=== PATIENT | male | born 1955 | race Caucasian/White ===

== ENCOUNTER → 2016-04-06 | Outpatient (CLI) | payer MEDICAID | END | disposition home or self-care (01) | LOC: LABPAT 17:10 | PROVIDERS: ATTEND Orthopaedic Surgery | DX: Z01.812 Encounter for preprocedural laboratory examination (principal) | CPT/HCPCS: 87070 ==

== ENCOUNTER → 2016-04-12 | Outpatient (CLI) | payer MEDICAID ==
[2016-04-12 12:15] LABS: EKG EKG PERFORMED
[2016-04-12 13:06] LABS: Partial Thromboplastin Time 22.9 sec (22.0-30.0); Prothrombin Time 10.3 sec (9.0-12.0)
[2016-04-12 13:29] LABS: Appearance,Urine Clear (Clear); Bilirubin,Urine Negative (Negative); Glucose,Urine (UA) Negative (Negative); Ketones,Urine Negative (Negative); Leukocyte Esterase,Urine Negative (Negative); Nitrite,Urine Negative (Negative); Protein,Urine Negative (Negative); Specific Gravity,Urine 1.022 (1.001-1.035); UA Billing (MACRO vs. MICRO) CHEM; Urobilinogen,Urine <2.0 mg/dL (<2.0)
[2016-04-12 13:30] LABS: CH 30.4; CHCM 34.3; HCT 44.4 % (39.0-53.0); HDW 2.73; HGB 14.5 gm/dL (13.0-17.5); MCH 29.2 pg (25.0-35.0); MCHC 32.8 g/dL (31.0-37.0); MCV 89.1 fL (80.0-100.0); Mean Platelet Volume 8.1; RBC 4.98 m/uL (4.30-5.90); RDW 13.1 % (11.5-15.5); WBC 5.9 k/uL (3.8-10.6)
[2016-04-12 14:24] LABS: Manual Review Performed; Nucleated Red Blood Cells 0 /100 WBC (0-0); Total Cells Counted 100
[2016-04-12 14:25] LABS: RBC Morphology Normal
[2016-04-12 15:24] LABS: ALT 36 U/L (21-72); AST 22 U/L (17-59); Alkaline Phosphatase 91 U/L (38-126); Anion Gap 14 mmol/L; Blood Urea Nitrogen 21 mg/dL (9-20); Calcium 9.2 mg/dL (8.4-10.2); Carbon Dioxide 25 mmol/L (22-30); Chloride 102 mmol/L (98-107); Glucose 108 mg/dL (74-99); Non-African American GFR(MDRD) >60 (>60 ml/min/1.73 sqM); Potassium 4.3 mmol/L (3.5-5.1); Sodium 141 mmol/L (137-145); Total Bilirubin 0.5 mg/dL (0.2-1.3); Total Protein 7.1 g/dL (6.3-8.2)
== END | disposition home or self-care (01) ==
LOC: LABPAT 12:01
PROVIDERS: ATTEND Orthopaedic Surgery
DX: Z01.810 Encounter for preprocedural cardiovascular examination (principal); R94.31 Abnormal electrocardiogram [ECG] [EKG]
CPT/HCPCS: 80053; 81003; 85027; 85610; 85730; 93005

== ENCOUNTER 2016-04-21 10:14 | Inpatient (IN) | payer MEDICAID ==
[2016-04-19 12:48] VITALS: BMI 31.5
[~2016-04-21 10:14] MED LIST: ACETAMINOPHEN TAB 500 MG TAB PO ONE; DEXAMETHASONE SOD PHOSPHATE 10 MG/ML 1 ML VIAL IV ONE; HYDROmorphone 1 MG/ML 1 ML SYRINGE IVP PRN; LACTATED RINGERS 1,000 ML IV SCH; MELOXICAM 7.5 MG TAB PO ONE; MIDAZOLAM 2 MG/2 ML VIAL IV PRN; ONDANSETRON 4 MG/2 ML VIAL IVP ONE; SCOPOLAMINE 1.5MG/72HR PATCH TRANSDERM ONE; TRANEXAMIC ACID 1,000 MG in SODIUM CHLORIDE 0.9% 100 ML IVPB ONE; ceFAZolin 2 GM in SODIUM CHLORIDE 0.9% 100 ML IVPB ONE
[2016-04-21] MEDS ORDERED: LIDOCAINE 1% 20 ML VIAL (10MG/ML) FOR IV START INTRADERMA ONE (11:15)
[2016-04-21] MEDS ORDERED: MIDAZOLAM 2 MG/2 ML VIAL ONE (12:12)
[2016-04-21] MEDS ORDERED: SODIUM CHLORIDE 0.9% IRRIG 1,000 ML BTL IRRIGATION ONE (12:12)
[2016-04-21] MEDS ORDERED: PHENYLEPHRINE-0.9% NACL SYG 1 MG/10 ML SYRINGE ONE (12:12)
[2016-04-21] MEDS ORDERED: fentaNYL (PF) 50 MCG/ML 2 ML AMP ONE (12:12)
[2016-04-21] MEDS ORDERED: ePHEDrine 50 MG/ML 1 ML AMP ONE (12:12)
[2016-04-21] MEDS ORDERED: PROPOFOL 10 MG/ML 20 ML VIAL IV ONE (12:12)
[2016-04-21] MEDS ORDERED: SODIUM CHLORIDE 0.9% 100 ML BAG ONE (12:12)
[2016-04-21] MEDS ORDERED: HEPARIN SODIUM,PORCINE 10,000 UNIT/ML 1 ML VIAL ONE (12:12)
[2016-04-21] MEDS ORDERED: TRANEXAMIC ACID 1,000 MG/10 ML VIAL ONE (12:12)
[2016-04-21] MEDS ORDERED: ceFAZolin 3,000 MG in SODIUM CHLORIDE 0.9% IRRIGATIO 3,000 ML IRRIGATION ONE (12:25)
[2016-04-21] MEDS: ROPIVACAINE 246.25 MG, EPINEPHrine 0.5 MG, KETOROLAC 30 MG, cloNIDine HCL/PF 80 MCG, WA... MISCELLANE ONE ×10 (12:43→13:33)
--- NOTE | 2016-04-21 13:52 | FL ---
EXAMINATION TYPE: FL guidance operating room, XR Hip Complete RT DATE OF EXAM: 04/21/2016 1:45 PM CLINICAL HISTORY: Right hip replacement surgery. TECHNIQUE: Fluoroscopy. COMPARISON: None. FINDINGS: Fluoroscopic guidance was provided during anterior approach hip replacement procedure perf ormed by Dr. Rider. A total of 35 seconds of fluoroscopic time was utilized during the procedure and 2 spot intraoperative images are acquired. Images acquired show metallic hardware from right hip arthroplasty felt satisfactory in position on i ntraoperative images saved in one frontal projection. IMPRESSION: As Above.
--- NOTE | 2016-04-21 13:58 | P.OP ---
Date of Procedure: 04/21/16 Preoperative Diagnosis: Severe osteoarthritis of the right hip Postoperative Diagnosis: Severe osteoarthritis of the right hip Procedure(s) Performed: Right total hip arthroplasty with a direct anterior approach Implants: Del Real and nephew Polarstem size 2 standard Del Real & Nephew R3, 3 hole acetabular shell, 54 mm De Lreal & Nephew reflection 6.5 mm cancellus screw, 20 mm 2 Del Real [employer] Nephew R3, XLPE 20 acetabular liner Del Real & Nephew Oxinium femoral head 36 m, +0 All components were press-fit. The articulation is ceramic on polyethylene. Anesthesia: spinal Surgeon: Gary Rider Fur Trimming Machine Operator #1: Sahara Arguello Estimated Blood Loss (ml): 250 (100 mL returned with Cell Saver) Pathology: other (Femoral head) Condition: stable Disposition: PACU Indications for Procedure: After failure of conservative treatment we discussed the surgical and nonsurgical treatment options at length. Patient wishes to proceed with a total hip arthroplasty with a direct anterior approach. Complications specific to this procedure were discussed at length, including but not limited to infection, leg length discrepancy, dislocation, and nerve injury. Patient is aware of all these complications and informed consent was obtained Operative Findings: The operative findings are consistent with severe osteoarthritis of the right hip Description of Procedure: Patient was seen and evaluated in the preoperative area, consent was reviewed, and the surgical site was marked with a skin marker. Patient was then brought to the operating room and given prophylactic antibiotics intravenously. 1 g of Tranexamic acid was also given. A spinal anesthetic was administered by the anesthesia department. The patient was then placed on the hana table with the bony prominences well-padded. The hip area was then prepped and draped in usual sterile fashion. A universal timeout was then performed, which confirmed the patient's name, surgical site, ALLERGIES, and procedure being performed. Next the incision site was located at 1 cm distal and 1 cm lateral to the anterior superior iliac spine. The skin and subcutaneous tissues were sharply incised. Incision was carefully dissected down to the fascia overlying the tensor fascia lucrecia muscle. This fascia was then incised in line with the incision. Next, using blunt finger dissection, the tensor fascia lucrecia muscle was dissected off its investing fascia. The muscle was then carefully retracted laterally with a cobra retractor over the lateral neck of the femur. Next, the circumflex vessels were identified and cauterized using the AquaMantis device. The anterior hip capsule was then exposed. The capsule was then opened and an inverted T fashion. Retention sutures were placed in the inferior arms of the capsule. Cobra retractors were then placed intracapsularly. The proximal femur was then visualized. The femoral neck was then osteotomized appropriate level above the lesser trochanter. Small amount of traction was placed with the hand table. A small wedge of bone was then removed from the remaining femoral head. Next, using a corkscrew femoral head was easily removed from the acetabulum. On gross visual inspection, the femoral head had complete loss of articular cartilage in multiple periarticular osteophytes. Attention was then turned to the acetabulum. the acetabulum was exposed and any remaining labrum was excised. Sequential reaming of the acetabulum was performed using fluoroscopic guidance. When the appropriate size was reached, a trial was then placed. The position and fit of the trial was checked with fluoroscopy. The trial was then removed. Then, using fluoroscopic guidance, the final implant was impacted at 20 of anteversion and 40 of abduction, and fully seated in the acetabulum. 2 screws were then placed in the acetabulum. Again fluoroscopy was used to check position of the screws. Next, the liner was then impacted, with a 20 elevated liner located in the anterior superior quadrant. Component locking was confirmed. Attention was then directed to the femur. With the aid of the Rosy table, the femur was externally rotated to approximately 130, extended, and abducted under the opposite leg. A side hook was then placed under the proximal femur, and the side hook elevator was used to elevate the proximal femur. Retractors were then placed. A capsular release was performed, as well as a release of the conjoined tendon, which afforded excellent visualization of the proximal femur. Next, a box osteotome was used to lateralize the proximal femur. A general merchandise manager was then used to locate the femoral canal. Sequential broaching was then performed with appropriate size which afforded excellent fixation in the proximal femur. The calcar was then planed. A trial was then placed with appropriate head and neck, and the hip was gently reduced with the aid of the Rosy table. Fluoroscopy was then used to check position of the components, as well as to ensure equal leg lengths. The hip was then gently dislocated and the trials were then removed. Final implants were then impacted and the hip was again reduced. Final fluoroscopic x-rays confirmed that the components were in anatomic position, as well as equal leg lengths. The hip was also taken through range of motion, and found to be stable. The hip was then copiously irrigated with antibiotic solution with pulsatile lavage. The hip was then irrigated with Irrisept solution. The soft tissues were then injected with ropivacaine solution. A second dose of 1 g of Tranexamic acid was given. the fascia was then closed with 2-0 strata fix suture. The subcutaneous tissue was closed with 3-0 Vicryl. The subcuticular tissue was closed with 30 strata fix suture. The skin was then closed with Dermabond tape. The patient was then transferred to the recovery room in stable condition. The Asst. Sahara Arguello was required due to the complexity of surgery, and the need for skilled quality assistant for positioning, draping, exposure, retraction, and closure of the wound.and closure of the wound.
[2016-04-21] MEDS ORDERED: LACTATED RINGERS 1,000 ML IV ONE (13:59)
[2016-04-21] MEDS ORDERED: HYDROmorphone 1 MG/ML 1 ML SYRINGE IVP PRN ×3 (14:05)
[2016-04-21] MEDS ORDERED: DIAZEPAM 5 MG TAB PO PRN ×2 (14:05)
[2016-04-21] MEDS ORDERED: ONDANSETRON 4 MG/2 ML VIAL IVP PRN (14:05)
[2016-04-21] MEDS ORDERED: NALOXONE 0.4 MG/ML 1 ML VIAL IV PRN (14:05)
[2016-04-21] MEDS ORDERED: HYDROcodone/APAP 5-325MG 1 EACH TAB PO PRN (14:05)
[2016-04-21] MEDS ORDERED: MAGNESIUM HYDROXIDE 2,400 MG/10 ML CUP PO PRN (14:05)
--- NOTE | 2016-04-21 14:35 | XR ---
EXAMINATION TYPE: XR Hip Limited RT DATE OF EXAM: 04/21/2016 2:26 PM COMPARISON: NONE HISTORY: Postop There is a prosthetic hip in near anatomic alignment. There is soft tissue edema and emphysema. IMPRESSION: 1. Postoperative change. Appears in near-anatomic alignment.
[2016-04-21] MEDS: hydrOXYzine PAMOATE 25 MG CAP PO PRN (17:46)
[2016-04-21] MEDS: HYDROcodone/APAP 5-325MG 1 EACH TAB PO PRN (17:46)
[2016-04-21] MEDS: SODIUM CHLORIDE 0.9% 1,000 ML IV SCH ×2 (19:28→23:48)
[2016-04-21 20:15] VITALS: RESP 16
[2016-04-21] MEDS ORDERED: SENNOSIDES-DOCUSATE SODIUM 1 EACH TAB PO SCH (21:00)
[2016-04-21] MEDS: ASPIRIN 325 MG TAB PO SCH (21:18)
[2016-04-21] MEDS: ceFAZolin 2 GM in SODIUM CHLORIDE 0.9% 100 ML IVPB SCH (23:28)
[2016-04-22] MEDS: HYDROcodone/APAP 5-325MG 1 EACH TAB PO PRN ×3 (00:03→12:43)
[2016-04-22] MEDS: hydrOXYzine PAMOATE 25 MG CAP PO PRN ×2 (00:04→06:59)
[2016-04-22 06:55] LABS: Basophils % (A) 0 %; CH 30.3; CHCM 34.2; Eosinophils % (A) 0 %; HCT 37.7 % (39.0-53.0); HDW 2.76; HGB 12.6 gm/dL (13.0-17.5); Luc # (Auto) 0.08; Luc % (Auto) 1; Lymphocytes # (A) 1.2 k/uL (1.0-4.8); Lymphocytes % (A) 14 %; MCH 29.8 pg (25.0-35.0); MCHC 33.5 g/dL (31.0-37.0); Mean Platelet Volume 8.2; Monocytes # (A) 0.6 k/uL (0-1.0); Monocytes % (A) 7 %; Neutrophils # (A) 6.1 k/uL (1.3-7.7); Neutrophils % (A) 77 %; RBC 4.23 m/uL (4.30-5.90); RDW 12.7 % (11.5-15.5); WBC (Perox) 8.53
[2016-04-22] MEDS: ceFAZolin 2 GM in SODIUM CHLORIDE 0.9% 100 ML IVPB SCH (07:00)
[2016-04-22] MEDS: ASPIRIN 325 MG TAB PO SCH (08:28)
[2016-04-22] MEDS ORDERED: MELOXICAM 7.5 MG TAB PO SCH (09:00)
[2016-04-22] MEDS: SODIUM CHLORIDE 0.9% 1,000 ML IV SCH (10:16)
--- NOTE | 2016-04-22 10:38 | P.DS ---
Providers Date of admission: 04/21/16 10:14 Expected date of discharge: 04/22/16 Attending physician: Gary Rider Consults: 04/21/16 14:05 Consult Physician Routine Consulting Provider: Carmine Ruth Consult Reason/Comments: medical management Do you want consulting provider notified?: Yes Primary care physician: Stated None - Discharge Diagnosis(es) (1) Status post total hip replacement, right Current Visit: Yes Status: Acute (2) Primary osteoarthritis of right hip Current Visit: Yes Status: Acute Hospital Course: This is a 60-year-old male with known history of degenerative arthritis of the right hip. The patient presents for evaluation. After discussion and consideration patient elects to proceed with total hip arthroplasty. The patient is seen preoperatively by his primary care physician and cleared for surgery. Patient is admitted to [facility] on 04/21/2016 for total hip arthroplasty. The procedures performed without complication or sequelae. The patient is doing well postoperatively. Labs and vital signs are stable on day of discharge. On day of discharge patient's hip incision is healing well. There is minimal erythema. There is no drainage noted at this time. There is minimal soft tissue swelling to the hip and thigh. Patient has full foot and ankle motion without difficulty or pain. Neurovascular status to the right lower extremity is intact. Patient is discharged to home in good condition. Plan - Discharge Summary New Discharge Prescriptions: Aspirin EC [Ecotrin] 325 mg PO BID #60 tablet. HYDROcodone/APAP 5-325MG [Halbur 5-325] 1 - 2 each PO Q4-6H PRN #90 tab PRN Reason: Pain Sennosides-Docusate Sodium [Senokot-S] 2 tab PO DAILY #60 tablet Discharge Medication List Hydrochlorothiazide [Hydrodiuril] 12.5 mg PO DAILY 04/19/16 [History] Meloxicam [Mobic] 7.5 mg PO DAILY 04/19/16 [History] NIFEdipine [Procardia XL] 30 mg PO DAILY 04/19/16 [History] Valsartan [Diovan] 80 mg PO DAILY 04/19/16 [History] Aspirin EC [Ecotrin] 325 mg PO BID #60 tablet. 04/21/16 [Rx] Sennosides-Docusate Sodium [Senokot-S] 2 tab PO DAILY #60 tablet 04/21/16 [Rx] HYDROcodone/APAP 5-325MG [Halbur 5-325] 1 - 2 each PO Q4-6H PRN #90 tab 04/22/16 [Rx] Follow up Appointment(s)/Referral(s): Gary Rider DO [Doctor of Osteopathic Medicine] - 2 Weeks Activity/Diet/Wound Care/Special Instructions: Weightbearing as tolerated with walker Daily dressing changes Okay to shower after 72 hours with no drainage Keep incision clean and dry Call [facility] with questions or concerns [phone] Discharge Disposition: HOME WITH HOME HEALTH SERVICES
[2016-04-22 14:21] VITALS: BP 97/63; PULSE 92; TEMP 99.5
--- NOTE | 2016-04-22 16:12 | CONS ---
DATE OF CONSULTATION: REASON FOR CONSULTATION: Advice regarding hypotension and multiple other medical issues requested by orthopedic surgery. HISTORY OF PRESENT ILLNESS: This 60-year-old gentleman with a past medical history of hypertension, history of degenerative joint disease, family history of malignant hyperthermia underwent right hip arthroplasty by orthopedic surgery. There is no chest pain or palpitation. No fever. No cough. Blood pressure found to be slightly low to 105/75, 97/63. There is no history of fever, rigors or chills. No history of headache or seizures at this time. PAST MEDICAL HISTORY: 1. History of hypertension. 2. History of degenerative joint disease. 3. History of left shoulder replacement. Medications prior to admission include: 1. Diovan 80 mg p.o. daily. 2. Procardia XL 30 mg p.o. daily. 3. Mobic 7.5 mg p.o. daily. 4. HydroDIURIL 12.5 mg p.o. daily. 5. Senokot-S 2 tabs daily. 6. Clarita family one to two tablets q4-6h p.r.n. 7. Ecotrin 320 mg b.i.d. ALLERGIES: None. FAMILY HISTORY: History of malignant hyperthermia. SOCIAL HISTORY: No history of smoking. No history of alcohol intake. REVIEW OF SYSTEMS: ENT: No diminished hearing. No diminished vision. CARDIOVASCULAR: No angina or palpitations. RESPIRATORY: No cough. GI: No nausea. : No dysuria. CARDIOVASCULAR: No numbness or weakness. ALLERGIES: No asthma or hayfever. MUSCULOSKELETAL: As mentioned earlier. HEMATOLOGY/ONCOLOGY: noted ENDOCRINE: No history of diabetes. CONSTITUTIONAL: As mentioned earlier. DERMATOLOGY: Negative. RHEUMATOLOGY: Negative. PSYCHIATRY: As mentioned earlier. PHYSICAL EXAMINATION: The patient is alert and oriented x3. Pulse is 77, blood pressure 105/75. Respiratory rate 16. Temperature 98.1, pulse ox 92% on room air. HEENT: Conjunctivae normal. NECK: No jugular venous distention. CARDIOVASCULAR: S1, S2 muffled. RESPIRATORY: Breath sounds diminished at the bases. No rhonchi. No crackles. ABDOMEN: Soft. Nontender. Status post knee arthroplasty. CENTRAL NERVOUS SYSTEM: Higher functions as mentioned earlier. Moves all four limbs. No focal deficits. LYMPHATICS: No lymph nodes palpable in the neck, axillae or groin. SKIN: No ulcer, rash or bleeding. LABS: Hemoglobin 12.5. ASSESSMENT: 1. Status post right hip arthroplasty. 2. Anemia, possibly dilutional. 3. Mild relative hypotension. 4. History of hypertension. 5. History of degenerative joint disease. Recommendations and Discussion: In this 60-year-old gentleman who presented with multiple medical issues at this time, I recommend to continue to hold the Procardia XL and for a couple of days and then restart in the outpatient. Monitor blood pressure closely. Otherwise, closely follow with primary physician in the outpatient setting. The rest of the medications per the recommendations of orthopedic surgery. MTDD
== END 2016-04-22 17:10 | disposition home health service (06) | DRG 470 ==
LOC: 2ORMAIN 10:14 → 3SUR 14:13
PROVIDERS: ADMIT Orthopaedic Surgery; ATTEND Orthopaedic Surgery
PROC: 0SR904A Replacement of Right Hip Joint with Ceramic on Polyethylene Synthetic Substitute, Uncemented, Open Approach (ICD-10-PCS; principal; 2016-04-21 12:30)
DX: M16.11 Unilateral primary osteoarthritis, right hip (principal); I95.9 Hypotension, unspecified; I10 Essential (primary) hypertension; D64.9 Anemia, unspecified; Z79.899 Other long term (current) drug therapy; Z79.82 Long term (current) use of aspirin
CPT/HCPCS: 73501; 73502; 85025; 86850; 86891; 86900; 86901; 88300

== ENCOUNTER → 2017-07-27 | Outpatient (CLI) | payer MEDICAID ==
[2017-07-27 15:39] LABS: Potassium 4.9 mmol/L (3.5-5.1)
== END | disposition home or self-care (01) ==
LOC: LABPAT 15:04
PROVIDERS: ATTEND Orthopaedic Surgery Sports Medicine
DX: Z01.812 Encounter for preprocedural laboratory examination (principal); Z01.818 Encounter for other preprocedural examination; I10 Essential (primary) hypertension; Z98.890 Other specified postprocedural states
CPT/HCPCS: 36415; 80051; 93005

== ENCOUNTER 2017-08-09 11:03 | Day surgery (SDC) | payer MEDICAID ==
[2017-08-06 10:13] VITALS: BMI 31.5
[~2017-08-09 11:03] MED LIST changes: -ACETAMINOPHEN TAB 500 MG TAB PO ONE; +HYDROmorphone 0.5 MG/0.5 ML SYRINGE IVP PRN; -HYDROmorphone 1 MG/ML 1 ML SYRINGE IVP PRN; -MELOXICAM 7.5 MG TAB PO ONE; +MORPHINE SULFATE 4 MG/ML SYRINGE IV PRN; +Pre Op ABX Message 1 EACH MISC MISCELLANE ONE; -SCOPOLAMINE 1.5MG/72HR PATCH TRANSDERM ONE; -TRANEXAMIC ACID 1,000 MG in SODIUM CHLORIDE 0.9% 100 ML IVPB ONE; -ceFAZolin 2 GM in SODIUM CHLORIDE 0.9% 100 ML IVPB ONE
[2017-08-09 11:23] VITALS: RESP 16
[2017-08-09] MEDS ORDERED: ceFAZolin IN SWFI 2 GM/20 ML SYRINGE IVP STA (11:23)
[2017-08-09] MEDS ORDERED: LIDOCAINE 1% 20 ML VIAL (10MG/ML) FOR IV START INTRADERMA ONE (11:53)
[2017-08-09] MEDS ORDERED: ROPIVACAINE 5 MG/ML 30 ML VIAL ONE (11:54)
[2017-08-09] MEDS ORDERED: ROCURONIUM BROMIDE 10 MG/ML 10 ML VIAL IV ONE (11:54)
[2017-08-09] MEDS ORDERED: GLYCOPYRROLATE 0.2 MG/ML 2 ML VIAL ONE (11:54)
[2017-08-09] MEDS ORDERED: fentaNYL (PF) 50 MCG/ML 2 ML AMP ONE (11:54)
[2017-08-09] MEDS ORDERED: PROPOFOL 10 MG/ML 20 ML VIAL IV ONE (11:54)
[2017-08-09] MEDS ORDERED: MORPHINE SULFATE IR 15 MG TABLET ONE (11:54)
[2017-08-09] MEDS ORDERED: PHENYLEPHRINE-0.9% NACL SYG 1 MG/10 ML SYRINGE ONE (11:54)
[2017-08-09] MEDS ORDERED: LIDOCAINE 1% INJ 10MG/ML (20 ML MDV) ONE (11:54)
[2017-08-09] MEDS ORDERED: LIDOCAINE 2% INJ 20 MG/ML (20 ML MDV) ONE (11:54)
[2017-08-09] MEDS ORDERED: MIDAZOLAM 2 MG/2 ML VIAL ONE (11:54)
[2017-08-09] MEDS ORDERED: NEOSTIGMINE 1 MG/ML 10 ML VIAL ONE (11:54)
[2017-08-09] MEDS ORDERED: SODIUM CHLORIDE 0.9% 100 ML with ceFAZolin 2,000 MG IV ONE ×2 (12:15)
[2017-08-09] MEDS ORDERED: LACTATED RINGERS 1,000 ML IV ONE (12:57)
[2017-08-09 13:26] VITALS: TEMP 97
[2017-08-09 14:21] VITALS: BP 125/82; PULSE 59
--- NOTE | 2017-08-09 18:00 | P.ONQ ---
Anesthesiology Proc Note - PNB - Peripheral Nerve Block Performed Right Interscalene Single Time Out Performed: Yes Procedure Start Time: 11:32 Procedure Stop Time: 11:36 Indication: Acute Post-Operative Pain, Requested by physician Sedation Type: Sedate with meaningful contact maintained Preparation: Sterile Prep Needle Size: 100mm (4") Needle Gauge: 21 Technique: Ultrasound Injectate: 0.5% Ropivacaine (see comment for volume) (ropi .5% 30cc) Blood Aspirated: No Pain Paresthesia on Injection Noted: No Resistance on Injection: Normal Events: Uneventful and Well Tolerated
--- NOTE | 2017-08-09 20:41 | OP ---
OPERATIVE REPORT DATE OF PROCEDURE: 08/09/2017 PREOPERATIVE DIAGNOSES: 1. Right shoulder superior labral tear. 2. Right shoulder bicipital tenosynovitis. 3. Right shoulder chondromalacia, glenohumeral joint. 4. Right shoulder subacromial impingement. POSTOPERATIVE DIAGNOSES: 1. Right shoulder type 2 superior labral tear, tearing both anterior and posterior to the biceps anchor. 2. Right shoulder partial tearing intra-articular long head of the biceps tendon. 3. Right shoulder chondromalacia, glenohumeral joint. 4. Right shoulder type 2 anterolateral acromial spur. 5. Right shoulder dense subacromial bursitis and adhesions. PROCEDURES PERFORMED: 1. Right shoulder arthroscopic biceps tenotomy. 2. Right shoulder arthroscopic anterior, superior and posterior labral debridement. 3. Right shoulder arthroscopic chondroplasty of the glenoid and the humeral head. 4. Right shoulder arthroscopic acromioplasty. 5. Right shoulder arthroscopic subacromial lysis of adhesions. SURGEON: Varun Barone MD. [employer] OPERATOR: Paul GANN. ANESTHESIA: General endotracheal. ESTIMATED BLOOD LOSS: Minimal. TOURNIQUET: None. DRAINS: None. COMPLICATIONS: None apparent. DISPOSITION: Postanesthesia Care Unit. EXAMINATION UNDER ANESTHESIA OF RIGHT SHOULDER: Elevation 160 degrees, external rotation at the side 45 degrees, external rotation at 90 degrees. Adduction was 90 degrees. Internal rotation at 90 degrees. Abduction was 60 degrees, sulcus less than 1 cm, anterior translation glenoid face, posterior translation of glenoid face. ARTHROSCOPIC FINDINGS, RIGHT SHOULDER: 1. Superior labrum. Type 2 superior labral tear, tearing both anterior and posterior at the biceps anchor. The biceps anchor was not intact. There was also partial tearing of the intra-articular portion of the long head of the biceps tendon. 2. Anterior inferior labrum normal. Normal glenoid labral attachment. 3. Posterior labrum. Tearing of the posterior labrum from the 9 o'clock position to the 12 o'clock position on the glenoid face. 4. Humeral head cartilage. There was diffuse grade 1-2 change with small punctate areas of grade 4 change at the posterior inferior aspect of the humeral head. There were some loose cartilage flaps noted as well. 5. Rotator cuff. No evidence of rotator cuff tearing on both the bursal or articular surface. 6. Glenoid face cartilage with diffuse grade 2-3 change with loose cartilage flaps. 7. Subacromial space. Significant fraying of the undersurface of the coracoacromial ligament with a type 2 anterolateral acromial spur. Dense subacromial bursitis and adhesions as well. INDICATIONS: Noé is a 62-year-old male with right shoulder pain. He has had a prolonged course of right shoulder pain. He has noted significant catching, weakness and pain in the shoulder. He has been through a fairly significant course of non-operative treatment at this point. Physical examination and MRI revealed tearing superior labrum as well as inflammatory changes of the proximal long head of the biceps tendon. There was also noted to be early chondromalacia of the glenohumeral joint. At this point the patient feels that he has failed non-operative treatment and would like to proceed with operative intervention. Long discussion was held with the patient with regard to treatment options. The risks of the procedure were all discussed with him in detail. These risks included but were not limited to risk of infection, nerve damage, bleeding, pain, and a small risk of deep vein thrombosis which could lead to fatal pulmonary embolism. Further risks include a possibility for biceps contour change with a biceps tenotomy. The patient understands the operation as well as the fact that there is no guarantee of improvement of his symptoms. Appropriate informed consent was obtained. DESCRIPTION OF THE PROCEDURE: Patient was identified in the preoperative holding area. Surgical site was marked by both the patient and myself. He was given 2 grams of Ancef IV for prophylactic purposes. He was then transferred to the operative suite, where he was placed supine on the operating room table. The patient was then intubated endotracheally and received general anesthesia throughout the operative procedure. Examination under anesthesia was then performed and the findings were noted as above. The patient was then placed into the beach chair position and well padded in preparation for surgery. Great care was taken to ensure the cervical spine was in neutral alignment and well padded and maintained that way throughout the operative procedure. Great care was also taken to ensure that his legs were appropriately padded as well. The patient's right upper extremity was then prepped and draped in the usual sterile fashion. A standard surgical pause was undertaken to ensure that appropriate preoperative antibiotics had been given and that we were operating on the correct site. All staff in the room were in agreement and we proceeded. The acromion as well as the AC joint and coracoid were marked with a surgical pen. The skin of the anticipated port sites were also marked with a surgical pen. The skin of the anticipated port sites were then injected with 0.25% Marcaine with epinephrine. I then proceed to make a posterior portal. A 30-degree arthroscope was introduced in the glenohumeral joint through this portal. The arthroscopic pump pressure was set at 40 mmHg and maintained at that level throughout the entire case. Next, utilizing an 18-gauge spinal needle, I topically localized the placement, and the anterior superior portal was made. This was made just underneath the biceps tendon high in the rotator interval. A small 5.75 mm cannula was then placed, and the outflow was then done through this cannula. Diagnostic arthroscopy of the shoulder was then performed. The findings were noted as above. Great care was taken to probe the superior labral complex as well as the biceps anchor. The biceps anchor was not firmly attached. He had significant tearing of the superior labrum. This extended both anterior and posterior to the biceps anchor. The intra- articular portion of the long head of the biceps tendon did have mild partial tearing as well. At this point I proceeded with a biceps tenotomy. The biceps was tenotomized near its attachment on the supraglenoid tubercle. This was done utilizing the ArthroCare wand. I then proceeded to debride the torn loose tissue of the superior labrum. This was debrided anteriorly, superiorly and posteriorly back to stable tissue. I then inspected the rotator cuff from intra-articular. There was no evidence of tearing from the articular surface of the subscapularis, supraspinatus or infraspinatus. I then inspected the joint itself. He had small punctate areas of grade 4 areas on the posterior inferior aspect of the humeral head. There were loose cartilage flaps noted there. These were gently debrided with light chondroplasty in this area utilizing the synovial shaver. He also had diffuse grade 2 and some areas of grade 3 change on the glenoid. There were loose chondral flaps noted there as well. These loose chondral flaps were also gently debrided via chondroplasty with a synovial shaver. At this point in time no further work was deemed necessary from intra-articular. The arthroscope was removed from the glenohumeral joint, and utilizing the same posterior skin incision, was placed in the subacromial space. Next, utilizing the 18-gauge spinal needle, I topically localized the placement. A lateral portal was made under direct visualization. Dense subacromial bursitis and adhesions. A subacromial bursectomy and lysis of adhesions were then performed utilizing synovial shaver as well as an ArthroCare wand. There was significant fraying of the undersurface of the coracoacromial ligament. This was then taken down utilizing the ArthroCare wand. This exposed an underlying type 2 anterolateral acromial spur. I then proceeded with an acromioplasty. Utilizing the synovial shaver in a cinthia-type fashion the acromioplasty was completed. When the acromioplasty was complete, the arthroscope was placed into the lateral portal and the shaver placed posteriorly to ensure that it was adequate and coplanar with the posterior aspect of the acromion. I then thoroughly examined the rotator cuff from the bursal surface as well. The arthroscope was placed in the lateral portal to do this. The shoulder was taken through range of motion. I was able to visualize the entire bursal surface of the rotator cuff and it was pristine without any evidence of tearing. At this point in time no further work was deemed necessary. The shoulder was thoroughly irrigated and drained with an outflow cannula. The arthroscopic equipment was removed from the shoulder. The arthroscopic portals were then closed with 3-0 nylon interrupted suture. Sterile compressive dressings were applied. The patient's right upper extremity was placed into a standard sling. All sponge and needle counts were deemed correct prior to closure. The patient tolerated the procedure without apparent complications. He was transferred to the recovery room in stable condition. MMODL / IJN: [id number] /
== END 2017-08-09 14:55 | disposition home or self-care (01) ==
LOC: OR 11:03
PROVIDERS: ATTEND Orthopaedic Surgery Sports Medicine
DX: S43.431A Superior glenoid labrum lesion of right shoulder, initial encounter (principal); M75.21 Bicipital tendinitis, right shoulder; S46.111A Strain of muscle, fascia and tendon of long head of biceps, right arm, initial encounter; M75.01 Adhesive capsulitis of right shoulder; X50.0XXA Overexertion from strenuous movement or load, initial encounter; M94.211 Chondromalacia, right shoulder; M25.811 Other specified joint disorders, right shoulder; Z79.899 Other long term (current) drug therapy; I10 Essential (primary) hypertension; Z91.09 Other allergy status, other than to drugs and biological substances; E78.5 Hyperlipidemia, unspecified
CPT/HCPCS: 64415; 29823; J2001 ×2; J2250; J1100; J2710; J2405; J3010; J0690; J2795; J2370; J2704

== ENCOUNTER → 2018-01-07 | Outpatient (CLI) | payer MEDICAID ==
--- NOTE | 2018-01-07 14:15 | MR ---
EXAMINATION TYPE: MR cervical spine wo con DATE OF EXAM: 01/07/2018 COMPARISON: None HISTORY: Cervicalgia / pain and weakness rt shoulder CONTRAST: Performed utilizing 0 mL intravenous Gadavist gadolinium contrast. TECHNIQUE: Multiplanar multiecho imaging on a 3.0 Keren magnet is performed through the cervical spin e. FINDINGS: The craniovertebral junction is normal. Vertebral body alignment is normal. C7-T1: No focal disc herniation or significant disc bulge is evident. No spinal canal stenosis or n eural foraminal stenosis is present. C6-7: No focal disc herniation or significant disc bulge is evident. No spinal canal stenosis or gilberto ral foraminal stenosis is present. C5-6: Mild disc bulge is present with mild anterior thecal sac contact. No AP spinal canal stenosis i s present. Mild right foraminal narrowing is present.. C4-5: There is a small central protrusion with mild anterior thecal sac compression. No cord contact is evident. No spinal canal stenosis or neural foraminal stenosis is present.. C3-4: No focal disc herniation or significant disc bulge is evident. No spinal canal stenosis or gilberto ral foraminal stenosis is present. C2-3: No focal disc herniation or significant disc bulge is evident. No spinal canal stenosis or gilberto ral foraminal stenosis is present. IMPRESSIONS: 1. Disc bulging C5-6 is a small central protrusion C4-5, age of which have mild anterior thecal sac c ompression. 2. Mild right foraminal narrowing C5-6. Correlate with the radicular symptoms.
== END | disposition home or self-care (01) ==
LOC: RADMRIMAIN 08:57
PROVIDERS: ATTEND Orthopaedic Surgery Sports Medicine
DX: M99.71 Connective tissue and disc stenosis of intervertebral foramina of cervical region (principal); M50.121 Cervical disc disorder at C4-C5 level with radiculopathy
CPT/HCPCS: 72141

== ENCOUNTER → 2018-01-17 | Outpatient (CLI) | payer MEDICAID ==
[2018-01-11 14:41] VITALS: BMI 31.5
[2018-01-17 12:05] VITALS: BP 138/91; PULSE 71; RESP 16
--- NOTE | 2018-01-17 15:23 | P.PAINCN ---
History of Present Illness - Reason for Consult Consult date: 01/17/18 - History of Present Illness This is initial consultation visit for this 62 years old male with a chronic history of neck pain with radiation to the right shoulder, the pain started more than 6 months ago, patient reported that the pain is constant and increases with any activity, radiated from the neck towards the right shoulder, patient had right shoulder arthroscopy/acromioplasty chondroplasty and lysis of adhesions, of the right shoulder ,and currently he describes the intensity of the pain clinic and right shoulder is 4/10 increased to 8/10 with any activity, he denies any motor or sensory deficit, he denies any fever or night sweats Past Medical History Past Medical History: Hypertension, Osteoarthritis (OA) History of Any Multi-Drug Resistant Organisms: None Reported Past Surgical History: Joint Replacement, Orthopedic Surgery Additional Past Surgical History / Comment(s): left shoulder replacement, R Hip replacement; arthroscopy knee & R shoulder Past Anesthesia/Blood Transfusion Reactions: Family Hisory of Malignant Hyperthermia Additional Past Anesthesia/Blood Transfusion Reaction / Comm: maternal cousin w/ malignant hyperthermia, pt. has never had problems Smoking Status: Current some day smoker - Past Family History Mother Family Medical History: Cancer Additional Family Medical History / Comment(s): Uterine CA Father Family Medical History: No Reported History Additional Family Medical History / Comment(s): 92 yrs old Medications and Allergies Home Medications Medication Instructions Recorded Confirmed Type Escitalopram [Lexapro] 10 mg PO DAILY 01/11/18 01/17/18 History Multivitamin [Men's Multi-Vitamin] 1 each PO DAILY 01/11/18 01/17/18 History Telmisartan 20 mg PO DAILY 01/11/18 01/17/18 History Allergies Allergy/AdvReac Type Severity Reaction Status Date / Time No Known Allergies Allergy Verified 01/17/18 11:54 Physical Exam Vitals: Vital Signs Pulse Resp BP Pulse Ox 01/17/18 11:55 71 16 138/91 96 Social history : smoker , NO ETOH , NO Illegal drugs use . Review of Systems : 1- Constitutional : no chills , no fever , no night sweats , 2- Ears : no ear discharge , no change in hearing 3-Nose, Mouth ,Throat ; no bleeding gums, no sore throat , no epistaxis , 4-Cardiovascular : Denies chest pain, , no orthopnea , no palpitation 5-Respiratory : Denies cough , no dyspnea , no hemoptysis 6-Gastrointestinal :, no change in bowel habits , no coffee- ground emesis . 7-Genitourinary : No hematuria , no discharge , no incontinence, 8-Musculoskeletal : No gait dysfunction , report neck pain with radiation to the right shoulder , 9- Neurological : no ataxia , no tremor , no sezure , 10-Psychatric , no suicidal ideation no hallucination 11- Endocrine : no cold intolerence , no polyuria , no polydypsia , 12-Hematologic : no easy bleeding , no easy brusing , 13-Allergic / immunology : no angioedema , no wheezing ,no allergic rhinitis 14-Integumentary : no brttle nails , no change hair / nails , no foot/leg ulcers . Physical Examinations : 1-Constitutional : Cooperative , not in acute distress . 2-HEENT : nech ; supple , no Lymphadenopathy , no Thyromegaly , :eyes , no icterus, no photophobia . ENT : , normal oropharynx , no Thrush 3- Respiratory : Chest clear to auscultations Bilaterally , no wheezing . 4- Cardiovascular : regular rate and rhythem , S1 , S2 , no S3 , no S4. 5- Gastrointestinal: abdomen soft no tenderness , no organomegally . 6- Genitourinary : Defferred . 7-Integumentary : No cellulitis , no ulcers , normal skin turgor , no cyanotic . 8- neurologic : Cranial nerve II to XII intact , no focal neurological deffecit 9-psychatric : alert , oriented X 3 , appropriate affect , intact judgment and insight . 10-Lymphatic : no Lymphadenopathy. 11- musculoskeltal: normal gait Cervical Spine motor stregnth in the deltoid and biceps, normal right side , normal Left side motor stregnth biceps and the wrist extensors normal right side ,normal left side . motor stregnth in the triceps muscle . normal Right side , normal Left side deep tendon reflexes normal at the biceps , normal at Brachioradialis , normal at triceps. abduction and lateral rotation of the right shoulder, Normal sensation in the upper extremity bilaterally Tenderness over the anterolateral aspect of the right shoulder Surgical sites healed appropriately there is no sign of erythema Lumber spine moter stegnth lower extremities ,thigh and legs 5/5 Right side , 5/5 Left side Results Comments: MRI of the cervical spine= done 01/07/2018 at [facility]= C5 6 disc bulging and C4 5 Central disc protrusion Assessment and Plan Plan: Assessment and plan=1-cervical radiculopathy., 2-cervical degenerative disc disease. 3-right shoulder arthralgia, possible right rotator cuff tear Patient could benefit from cervical epidural steroid injections, procedure risk and benefits and alternatives discussed with the patient he agreed with the preceding. Also patient could benefit from physical therapy referral to physical therapy evaluation and treatment was given. Time with Patient: Greater than 30 PQRS Measure Charge Sheet Measure #130: Documentation of Current Meds in Medical Chart: Patient's medications documented in chart Measure #226: Tobacco Use: Screen & Cessation Intervention: Pt screened for tobacco use AND intervention given Measure #111: Pneumonia Vaccination: Pneumococcal vaccine NOT administered or previously given Measure #47: Advance Care Plan: Advance care planning discussed & documented, pt chose/unable to give Measure #412: Opioid Treatment Agreement: No documentation of signed opioid treatment agreement Measure #408: Opioid Therapy Follow-up Evaluation: Patient had NO f/u eval minimum every 3 months during opioid therapy Measure #317: Preventitive Care & Scrn High Bld Press & F/U: Normal blood pressure, f/u not required Measure #128: Body Mass Index (BMI) Screening & Follow-up: BMI documented ABOVE normal parameters - f/u documented Measure #131: Pain Assessment & Follow-up: Pain positive & plan documented, Follow-up scheduled Measure #431: Unhealthy Alcohol Use Preventative Care & Scrn: Patient not identified as an unhealthy alcohol user PQRS Narrative: Smoking Status Current some day smoker Do You Want the Pneumonia No Vaccine AT THIS TIME? Blood Pressure 138/91 Pain Intensity [Right Shoulder 10 ] Scale Used Numeric (1 - 10) Hx Alcohol Use (MH) Yes: rare Home Medications: Ambulatory Orders Escitalopram [Lexapro] 10 mg PO DAILY 01/11/18 Multivitamin [Men's Multi-Vitamin] 1 each PO DAILY 01/11/18 Telmisartan 20 mg PO DAILY 01/11/18
== END ==
LOC: PNWHC3 11:51
PROVIDERS: ATTEND Specialist
DX: M50.10 Cervical disc disorder with radiculopathy, unspecified cervical region (principal); M25.511 Pain in right shoulder; F17.200 Nicotine dependence, unspecified, uncomplicated; Z79.899 Other long term (current) drug therapy
CPT/HCPCS: 99211

== ENCOUNTER → 2018-02-06 | Day surgery (SDC) | payer MEDICAID ==
[2018-02-01 08:31] VITALS: BMI 31.5
[~2018-02-06] MED LIST changes: -DEXAMETHASONE SOD PHOSPHATE 10 MG/ML 1 ML VIAL IV ONE; -HYDROmorphone 0.5 MG/0.5 ML SYRINGE IVP PRN; -LACTATED RINGERS 1,000 ML IV SCH; -MIDAZOLAM 2 MG/2 ML VIAL IV PRN; -MORPHINE SULFATE 4 MG/ML SYRINGE IV PRN; -ONDANSETRON 4 MG/2 ML VIAL IVP ONE; -Pre Op ABX Message 1 EACH MISC MISCELLANE ONE; +SODIUM CHLORIDE 0.9% 500 ML 500 ML IV ONE; +SODIUM CHLORIDE 0.9% 500 ML 500 ML IV SCH
[2018-02-06 07:06] VITALS: TEMP 97
--- NOTE | 2018-02-06 08:50 | P.PCN ---
Date of Procedure: 02/06/18 Surgeon: Enriqueta Valenzuela Pathology: none sent Condition: stable Disposition: PACU Description of Procedure: PROCEDURE 1. Cervical epidural steroid injection under fluoroscopic guidance, C7-T1 2. Cervical epidurogram. : PREOPERATIVE DIAGNOSIS: Cervical radiculopathy, cervical spondylosis without myelopathy POSTOPERATIVE DIAGNOSIS: : Same as above ANESTHESIA: Local anesthesia with 1% lidocaine and IV moderate conscious sedation with Versed and Fentanyl . EBL 0 PROCEDURE INDICATION: The patient with neck pain and radiculopathy unresponsive to conservative treatment consents for procedure. PROCEDURE DESCRIPTION / TECHNIQUE: The patient was seen and identified in the preoperative area. Risks, benefits, complications, including but not limited to infections ,bleeding , allergic reactions to the medications ,and not complete pain relief, and alternatives were discussed with the patient, the patient agreed to proceed with the procedure and signed the consent. Patient was taken to the OR and time out was completed. The patient was placed in the prone position on the procedure table. A pillow was placed under the patients chest to increase the flexion of the cervical spine . The cervical area was prepped and draped in the usual sterile fashion. Vital signs were closely monitored during the procedure. Conscious sedation was used during the procedure to decrease patients anxiety. Using anterior-posterior fluoroscopy, the C7-T1 interlaminar space was identified and the skin over this site was marked and then infiltrated with 1% lidocaine subcutaneously. Subsequently, a 20-gauge 3-1/2-inch Tuohy epidural needle was inserted and advanced toward the epidural space by means of loss of resistance to air technique and guided by AP and lateral fluoroscopy. The needle tip contacted the lamina of T1 vertebra first, then it was walked off the bone and into the epidural space using the loss of to air and fluoroscopic guidance to identify the epidural space. The correct needle position in the epidural space was verified with the injection of 1 mL of the water soluble contrast dye Isovue and observing an excellent epidurogram with the epidural spread of the dye, after negative aspiration for blood and CSF and in the absence of paresthesias. Again after negative aspiration, a 5 ml mixture containing 20 mg of Decadron and 4 ml of preservative free Normal Saline solution was injected and a washout of epidurogram was seen. Needle was withdrawn intact, skin was cleansed, and bandages were applied.
[2018-02-06 08:55] VITALS: BP 124/79; PULSE 67; RESP 18
--- NOTE | 2018-02-06 09:06 | FL ---
Fluoroscopy HISTORY: Pain EXAMINATION TYPE: FL guided pain mgmt statistic DATE OF EXAM: 02/06/2018 COMPARISON: NONE HISTORY: Pain Fluoroscopy support supplied to the referring clinician. See dictated report from 13 seconds fluoros copy time supplied to the referring clinician. 1 intraoperative C-arm images document the procedure. See dictated report from anesthesia.
== END ==
LOC: ORPAIN 06:50
PROVIDERS: ATTEND Anesthesiology
DX: M47.22 Other spondylosis with radiculopathy, cervical region (principal); I10 Essential (primary) hypertension
CPT/HCPCS: 62321; J2250; J1100; J3010; Q9966; 99152